=== PATIENT | female | born 1940 | race Caucasian/White ===

== ENCOUNTER → 2019-05-24 14:41 | Outpatient (BNVA) | payer MEDICARE, SELFPAY | PROVIDERS: Visit Provider Nurse Practitioner Family | DX: J11.1 Influenza due to unidentified influenza virus with other respiratory manifestations (principal); J44.0 Chronic obstructive pulmonary disease with (acute) lower respiratory infection; J06.9 Acute upper respiratory infection, unspecified | CPT/HCPCS: 87804 ==

== ENCOUNTER → 2019-09-04 11:48 | Outpatient (BNVA) | payer MEDICARE, SELFPAY | PROVIDERS: Visit Provider Specialist | DX: M25.512 Pain in left shoulder (principal); S42.212A Unspecified displaced fracture of surgical neck of left humerus, initial encounter for closed fracture; X58.XXXA Exposure to other specified factors, initial encounter; M81.8 Other osteoporosis without current pathological fracture | CPT/HCPCS: 73030; 73080; 73110 ==

== ENCOUNTER 2019-09-04 14:55 | Outpatient (CLI) | payer MEDICARE, SELFPAY | END 2019-09-04 14:56 | disposition home or self-care (01) | LOC: SPT 14:56 | PROVIDERS: Visit Provider Specialist | DX: Z46.89 Encounter for fitting and adjustment of other specified devices (principal); S42.492D Other displaced fracture of lower end of left humerus, subsequent encounter for fracture with routine healing; S42.292D Other displaced fracture of upper end of left humerus, subsequent encounter for fracture with routine healing; X58.XXXD Exposure to other specified factors, subsequent encounter; M25.512 Pain in left shoulder; S42.212A Unspecified displaced fracture of surgical neck of left humerus, initial encounter for closed fracture; X58.XXXA Exposure to other specified factors, initial encounter; M81.8 Other osteoporosis without current pathological fracture | CPT/HCPCS: 73030; 73080; 73110; 97760; L3670 ==

== ENCOUNTER → 2019-09-18 13:23 | Outpatient (BNVA) | payer MEDICARE, SELFPAY | PROVIDERS: Visit Provider Specialist | DX: S42.295A Other nondisplaced fracture of upper end of left humerus, initial encounter for closed fracture (principal); S42.215A Unspecified nondisplaced fracture of surgical neck of left humerus, initial encounter for closed fracture; X58.XXXA Exposure to other specified factors, initial encounter | CPT/HCPCS: 73030 ==

== ENCOUNTER → 2019-10-04 13:06 | Outpatient (BNVA) | payer MEDICARE, SELFPAY | PROVIDERS: Visit Provider Specialist | DX: S42.295A Other nondisplaced fracture of upper end of left humerus, initial encounter for closed fracture (principal); S42.402A Unspecified fracture of lower end of left humerus, initial encounter for closed fracture; X58.XXXA Exposure to other specified factors, initial encounter | CPT/HCPCS: 73030 ==

== ENCOUNTER → 2019-11-09 13:17 | Outpatient (BNVA) | payer MEDICARE, SELFPAY | PROVIDERS: Visit Provider Specialist | DX: S42.202D Unspecified fracture of upper end of left humerus, subsequent encounter for fracture with routine healing (principal); X58.XXXD Exposure to other specified factors, subsequent encounter; M25.512 Pain in left shoulder | CPT/HCPCS: 73030 ==

== ENCOUNTER 2019-11-21 13:28 | Outpatient (RCR) | payer MEDICARE, SELFPAY | END 2019-12-04 23:59 | disposition home or self-care (01) | LOC: SOT 13:28 | PROVIDERS: Referring Provider Family Medicine; Visit Provider Family Medicine | DX: S42.402D Unspecified fracture of lower end of left humerus, subsequent encounter for fracture with routine healing (principal); S42.202D Unspecified fracture of upper end of left humerus, subsequent encounter for fracture with routine healing; T14.8XXD Other injury of unspecified body region, subsequent encounter | CPT/HCPCS: 97110; 97167 ==

== ENCOUNTER 2019-12-05 06:00 | Outpatient (RCR) | payer MEDICARE, SELFPAY | END 2020-01-03 23:59 | disposition home or self-care (01) | LOC: SOT 06:00 | PROVIDERS: PCP Nurse Practitioner Family; Referring Provider Family Medicine; Visit Provider Family Medicine | DX: S42.292D Other displaced fracture of upper end of left humerus, subsequent encounter for fracture with routine healing (principal) | CPT/HCPCS: 97110 ==

== ENCOUNTER → 2019-12-25 10:59 | Outpatient (BNVA) | payer MEDICARE, SELFPAY | PROVIDERS: PCP Nurse Practitioner Family; Visit Provider Internal Medicine | DX: Z11.59 Encounter for screening for other viral diseases (principal); J44.9 Chronic obstructive pulmonary disease, unspecified | CPT/HCPCS: 87635 ==

== ENCOUNTER 2019-12-28 09:59 | Outpatient (CLI) | payer MEDICARE, SELFPAY ==
--- NOTE | 2019-12-28 15:58 | PFTS_ITS ---
Date of Study:12/28/19 Date of Dictation: MECHANICS: Forced vital capacity (FVC) is normal. Forced expiratory volume in one second (FEV1) is reduced. FEV1/FVC is reduced. FLOW VOLUME LOOP: Reduced flow at all lung volumes with scooping. LUNG VOLUMES: Total lung capacity (TLC) is normal. Residual volume (RV) is normal. DIFFUSING CAPACITY FOR CARBON MONOXIDE: Moderately reduced. INTERPRETATION: The pulmonary function tests are consistent with moderate airflow obstruction. No postbronchodilator spirometry was performed. Lung volumes are normal. Gas exchange (DLCO) is moderately reduced. MTDD
== END 2019-12-28 10:00 | disposition home or self-care (01) ==
LOC: RT 10:03
PROVIDERS: PCP Nurse Practitioner Family; Visit Provider Internal Medicine Critical Care Medicine
DX: J44.9 Chronic obstructive pulmonary disease, unspecified (principal)
CPT/HCPCS: 94010; 94726; 94729; J7611

== ENCOUNTER 2020-01-04 06:00 | Outpatient (RCR) | payer MEDICARE, SELFPAY | END 2020-02-03 23:59 | disposition home or self-care (01) | LOC: SOT 06:00 | PROVIDERS: PCP Nurse Practitioner Family; Referring Provider Family Medicine; Visit Provider Family Medicine | DX: S42.292D Other displaced fracture of upper end of left humerus, subsequent encounter for fracture with routine healing (principal) | CPT/HCPCS: 97110 ==

== ENCOUNTER 2020-01-08 14:10 | Outpatient (RCR) | payer MEDICARE, SELFPAY | END 2020-02-03 23:59 | disposition home or self-care (01) | LOC: SPT 14:10 | PROVIDERS: PCP Nurse Practitioner Family; Referring Provider Specialist; Visit Provider Specialist | DX: S42.209D Unspecified fracture of upper end of unspecified humerus, subsequent encounter for fracture with routine healing (principal); X58.XXXD Exposure to other specified factors, subsequent encounter | CPT/HCPCS: 97110; 97162 ==

== ENCOUNTER 2020-02-04 06:00 | Outpatient (RCR) | payer MEDICARE, SELFPAY | END 2020-03-04 23:59 | disposition home or self-care (01) | LOC: SOT 06:00 | PROVIDERS: PCP Nurse Practitioner Family; Referring Provider Family Medicine; Visit Provider Family Medicine | DX: S42.392D Other fracture of shaft of left humerus, subsequent encounter for fracture with routine healing (principal) | CPT/HCPCS: 97110 ==

== ENCOUNTER 2020-02-04 06:00 | Outpatient (RCR) | payer MEDICARE, SELFPAY | END 2020-03-04 23:59 | disposition home or self-care (01) | LOC: SPT 06:00 | PROVIDERS: PCP Nurse Practitioner Family; Referring Provider Specialist; Visit Provider Specialist | DX: S42.202D Unspecified fracture of upper end of left humerus, subsequent encounter for fracture with routine healing (principal); X58.XXXD Exposure to other specified factors, subsequent encounter | CPT/HCPCS: 97110 ==

== ENCOUNTER 2020-03-05 06:00 | Outpatient (RCR) | payer MEDICARE, SELFPAY | END 2020-04-04 23:59 | disposition home or self-care (01) | LOC: SPT 06:00 | PROVIDERS: PCP Nurse Practitioner Family; Referring Provider Specialist; Visit Provider Specialist | DX: S42.209D Unspecified fracture of upper end of unspecified humerus, subsequent encounter for fracture with routine healing (principal); X58.XXXD Exposure to other specified factors, subsequent encounter | CPT/HCPCS: 97110 ==

== ENCOUNTER 2020-03-05 06:00 | Outpatient (RCR) | payer MEDICARE, SELFPAY | END 2020-04-04 23:59 | disposition home or self-care (01) | LOC: SOT 06:00 | PROVIDERS: PCP Nurse Practitioner Family; Referring Provider Family Medicine; Visit Provider Family Medicine | DX: S42.292D Other displaced fracture of upper end of left humerus, subsequent encounter for fracture with routine healing (principal) | CPT/HCPCS: 97110 ==

== ENCOUNTER 2020-04-05 06:00 | Outpatient (RCR) | payer MEDICARE, SELFPAY | END 2020-05-05 23:59 | disposition home or self-care (01) | LOC: SOT 06:00 | PROVIDERS: PCP Nurse Practitioner Family; Referring Provider Family Medicine; Visit Provider Family Medicine | DX: S42.292D Other displaced fracture of upper end of left humerus, subsequent encounter for fracture with routine healing (principal) | CPT/HCPCS: 97110 ==

== ENCOUNTER 2020-04-05 06:00 | Outpatient (RCR) | payer MEDICARE, SELFPAY | END 2020-05-05 23:59 | disposition home or self-care (01) | LOC: SPT 06:00 | PROVIDERS: PCP Nurse Practitioner Family; Referring Provider Specialist; Visit Provider Specialist | DX: S42.202D Unspecified fracture of upper end of left humerus, subsequent encounter for fracture with routine healing (principal); X58.XXXD Exposure to other specified factors, subsequent encounter | CPT/HCPCS: 97110 ==

== ENCOUNTER 2020-05-06 06:00 | Outpatient (RCR) | payer MEDICARE, SELFPAY | END 2020-06-02 23:59 | disposition home or self-care (01) | LOC: SPT 06:00 | PROVIDERS: PCP Family Medicine; Referring Provider Specialist; Visit Provider Specialist | DX: S42.209D Unspecified fracture of upper end of unspecified humerus, subsequent encounter for fracture with routine healing (principal); X58.XXXD Exposure to other specified factors, subsequent encounter | CPT/HCPCS: 97110 ==

== ENCOUNTER 2020-05-06 06:00 | Outpatient (RCR) | payer MEDICARE, SELFPAY | END 2020-06-02 23:59 | disposition home or self-care (01) | LOC: SOT 06:00 | PROVIDERS: PCP Family Medicine; Referring Provider Family Medicine; Visit Provider Family Medicine | DX: S42.292D Other displaced fracture of upper end of left humerus, subsequent encounter for fracture with routine healing (principal) | CPT/HCPCS: 97110 ==

== ENCOUNTER 2020-05-27 13:07 | Outpatient (CLI) | payer MEDICARE, SELFPAY ==
--- NOTE | 2020-05-27 13:33 | CT_ITS ---
WS: [id number] CT PARANASAL SINUSES HISTORY: Persistent RHINOSINUSITIS TECHNIQUE: Contiguous 2.5 mm axial images obtained through the sinuses. Images are reconstructed in s agittal and coronal planes. All CT scans at [facility] use at least one of these dose opt imization techniques: automated exposure control; mA and/or kV adjustment per patient size (includes targeted exams where dose is matched to clinical indication); or iterative reconstruction. DLP: 346.37 mGycm COMPARISON: None available. Frontal sinuses: Normal. Sphenoid sinus: Normal. Ethmoid sinuses: Normal. Maxillary sinus: Moderate-sized mucous retention cyst in the floor of the RIGHT maxillary sinus. Diam eter of 1.6 cm. No air-fluid levels. Ostiomeatal unit: Patent ostiomeatal units. There is very slight deviation of the nasal septum to the RIGHT. No significant spurring. Orbits and globes are negative. No asymmetry involving the nasopharynx. CT/CT sinus wo con* [id number] IMPRESSION: 1. Moderate-sized mucous retention cyst in the floor the RIGHT maxillary sinus . 2. No sinusitis. 3. No significant asymmetry or increased soft tissue along the nasopharynx.
== END 2020-05-27 13:08 | disposition home or self-care (01) ==
LOC: RADWPI 13:09
PROVIDERS: PCP Family Medicine; Visit Provider Internal Medicine Critical Care Medicine
DX: J31.0 Chronic rhinitis (principal); J32.9 Chronic sinusitis, unspecified; M27.40 Unspecified cyst of jaw
CPT/HCPCS: 70486

== ENCOUNTER 2020-06-03 06:00 | Outpatient (RCR) | payer MEDICARE, SELFPAY | END 2020-07-03 23:59 | disposition home or self-care (01) | LOC: SOT 06:00 | PROVIDERS: PCP Family Medicine; Referring Provider Family Medicine; Visit Provider Family Medicine | DX: S42.209D Unspecified fracture of upper end of unspecified humerus, subsequent encounter for fracture with routine healing (principal); X58.XXXD Exposure to other specified factors, subsequent encounter | CPT/HCPCS: 97110; 97530 ==

== ENCOUNTER → 2020-08-26 14:48 | Outpatient (BNVA) | payer MEDICARE, SELFPAY | PROVIDERS: PCP Nurse Practitioner Family; Visit Provider Internal Medicine Critical Care Medicine | DX: J41.1 Mucopurulent chronic bronchitis (principal); J31.0 Chronic rhinitis; J32.9 Chronic sinusitis, unspecified; J96.11 Chronic respiratory failure with hypoxia | CPT/HCPCS: 80053; 85025 ==

== ENCOUNTER 2020-09-25 09:23 | Outpatient (CLI) | payer MEDICARE, SELFPAY ==
--- NOTE | 2020-09-25 09:32 | ECG_ITS ---
[facility] Test Date: 2020-09-25 Pat Name: Antonietta Vickers Department: Room: Gender: Female Choir Teacher: : 1940 Requested By: [employer] Minister[employer] Order Number: [id number] Una MD: TRACY LEE Interpretive Statements NAME OF STUDY: LEXISCAN SESTAMIBI STRESS TEST INDICATION: Chest Pain, NOTE: Please note that this is the electrocardiogram portion of the Lexiscan/Sestamibi stress test. The perfusion scan will be documented separately. DATA: Baseline heart rate was 73 beats per minute. Baseline blood pressure was 130/81 millimeters of mercury. Target heart rate was 139. Maximum heart rate achieved was 105. which was 75 % of the predicted target heart rate. Maximum blood pressure was 149/83 millimeters of mercury. The reason for ending the test was completion of the protocol. The patient did not experience any symptoms. ELECTROCARDIOGRAM: BASELINE: Sinus rhythm. Normal axis. Otherwise, no ST-T changes suggestive of ischemia noted. No arrhythmia noted. EXERCISE: After Lexiscan injection, no ST-T changes suggestive of ischemic noted. No arrhythmia noted. 1. EKG not suggestive of ischemia 2. Lexiscan injection unremarkable. 3. Perfusion scan will be documented separately. Electronically Signed On 09-25-2020 18:40:35 CDT by TRACY LEE [id number]
--- NOTE | 2020-09-25 09:33 | NMCV_ITS ---
NM stanislaw perf SPECT r/s* [id number] Antonietta Vickers Age: 80 Gender: F : 1940 Exam Date: 09/25/2020 11:20 Ordering Phys: Steffanie Mandel MD Technologist: MARQUES Ch Exam Location: [facility] Indications: MUCOPURULENT CHRONIC BRONCHITIS STRESS TEST [facility] IMAGE PROTOCOL Rest/Stress 1 Lexiscan Day Radiopharmaceutical Dose (mCi) Administration Site Administered by Rest: Tc-99m 10.6 IV MARQUES Siegel Sestamicharisma Stress:Tc-99m 33.0 IV MARQUES Siegel Sestamibi Rest: 25-Sep-2020 60 Discovery 630 Stress: 25-Sep-2020 30 Discovery 630 0.4mg Lexiscan. Supine position only as patient was unable to lay prone. SPECT RESULTS Technical Quality: Good Raw Data Analysis: Normal Image Corrections: No attenuation or motion correction applied Summed Stress Score: 0 Summed Rest Score: 2 Summed Difference Score: 0 PERFUSION FINDINGS SPECT images demonstrate homogeneous tracer distribution throughout the myocardium. FUNCTIONAL RESULTS (calculated via Gated SPECT) Stress Image LV EF (%): 83 Stress EDV (mL):52 TID: 1 Stress ESV (mL):9 Rest Image LV EF (%): 83 FUNCTIONAL FINDINGS: There is normal left ventricular systolic function. IMPRESSIONS Myocardial perfusion imaging is normal. EKG segment will be documented separately. Mary Powell MD (Electronically Signed) Final Date: 25 September 2020 18:31 S
[2020-09-25] MEDS: regadenoson 0.4 Mg/5 ml Syringe IVP (12:20)
[2020-09-25 12:43] VITALS: BP 124/78; PULSE 95
== END 2020-09-25 09:24 | disposition home or self-care (01) ==
LOC: CDL 09:27
PROVIDERS: PCP Electrodiagnostic Medicine; Visit Provider Internal Medicine Critical Care Medicine
DX: R06.02 Shortness of breath (principal); R07.9 Chest pain, unspecified
CPT/HCPCS: 78452; 93017; 96374; A9500; J2785

== ENCOUNTER → 2021-06-23 10:46 | Outpatient (BNVA) | payer MEDICARE, SELFPAY | PROVIDERS: PCP Electrodiagnostic Medicine; Visit Provider Internal Medicine Critical Care Medicine | DX: J41.1 Mucopurulent chronic bronchitis (principal); J31.0 Chronic rhinitis; J32.9 Chronic sinusitis, unspecified; J96.11 Chronic respiratory failure with hypoxia; Z87.891 Personal history of nicotine dependence | CPT/HCPCS: 99214 ==

== ENCOUNTER → 2021-12-25 10:58 | Outpatient (BNVA) | payer MEDICARE, SELFPAY | PROVIDERS: PCP Electrodiagnostic Medicine; Visit Provider Internal Medicine Critical Care Medicine | DX: J41.1 Mucopurulent chronic bronchitis (principal); J31.0 Chronic rhinitis; J32.9 Chronic sinusitis, unspecified; J96.11 Chronic respiratory failure with hypoxia; Z99.81 Dependence on supplemental oxygen | CPT/HCPCS: 99214 ==

== ENCOUNTER → 2022-08-03 10:29 | Outpatient (BNVA) | payer MEDICARE, SELFPAY | PROVIDERS: PCP Electrodiagnostic Medicine; Visit Provider Internal Medicine Pulmonary Disease | DX: J41.1 Mucopurulent chronic bronchitis (principal); J31.0 Chronic rhinitis; J32.9 Chronic sinusitis, unspecified; J96.11 Chronic respiratory failure with hypoxia; Z87.891 Personal history of nicotine dependence; R60.0 Localized edema; Z99.81 Dependence on supplemental oxygen | CPT/HCPCS: 99214 ==

== ENCOUNTER 2022-08-18 11:37 | Outpatient (CLI) | payer MEDICARE, SELFPAY ==
--- NOTE | 2022-08-18 11:49 | XRR_ITS ---
PROCEDURE INFORMATION: Exam: XR Chest Exam date and time: 08/18/2022 11:55 AM Age: 82 years old Clinical indication: Shortness of breath; Additional info: SOB TECHNIQUE: Imaging protocol: Radiologic exam of the chest. Views: 2 views. COMPARISON: CR XR shoulder LT min 2V* [id number] 11/09/2019 1:26 PM FINDINGS: Lungs: There is no consolidation. Lung volumes are large. There is relative hyperlucency of the upper lungs. Pleural spaces: There is no pleural effusion or pneumothorax. Heart/Mediastinum: Cardiomediastinal contours are unremarkable. Bones/joints: There is a healed fracture of the left proximal humerus. No acute fracture. XR/XR chest 2V* [id number] IMPRESSION: 1. No acute findings. 2. Emphysema.
== END 2022-08-18 11:38 | disposition home or self-care (01) ==
PROVIDERS: PCP Electrodiagnostic Medicine; Visit Provider Internal Medicine Pulmonary Disease
DX: J43.9 Emphysema, unspecified (principal)
CPT/HCPCS: 71046

== ENCOUNTER 2022-09-27 13:43 | Emergency (ER) | payer MEDICARE, SELFPAY ==
[2022-09-27 13:53] VITALS: BP 123/62; PULSE 97; RESP 17; TEMP 37; O2SAT 93; BMI 27.8
--- NOTE | 2022-09-27 14:25 | ED_ITS ---
HPI - Female Genitourinary General: Chief complaint: Urogenital-Female Stated complaint: blood in urine, constipation, lightheaded Time Seen by Provider: 09/27/22 14:24 History of Present Illness: Ms. Longo is a an 82-year-old lady presenting to the emergency department due to blood in urine. Apparently she had fever and mild urinary symptoms 5 days ago and was seen by primary care. She was diagnosed with urinary tract infection and started on antibiotic. She does not recall specifically which one but it sounds like probably Bactrim. Despite this she has had hematuria for the past 3 days with any urination. Denies blood in stool or other sources of bleeding. Does have some lower abdominal pressure however largely this is resolved. She is not on anticoagulation. No other specific changes in health, exacerbating, or alleviating factors identified. Onset (ago): day(s) Location of symptoms: suprapubic Urinary symptoms: Hematuria Review of Systems General: Reports: 10 or more systems reviewed and unremarkable except in HPI and below PFSH ED PFSH: Medical History COPD (chronic obstructive pulmonary disease) Family History Father CAD (coronary artery disease) Social History Smoking and tobacco status: former smoker Quit status (tobacco): has quit using tobacco Year quit tobacco: 2019 - PPD x 60 Years Second hand smoke exposure: Yes Smoking risk assessment/counseling performed?: No Alcohol intake: current Alcohol intake frequency: few times a month Alcohol typ e: wine Substance/Drug Use: never Lives independently: Yes Household members: spouse Marital status: Life Partner Current occupational status: retired Do you think of yourself as: Straight/Heterosexual Current gender identity: Female Physical Exam Const: COMMON NORMALS: alert GENERAL APPEARANCE: cooperative and well devel oped HENMT: COMMON NORMALS: normocephalic and atraumatic HEAD & SCALP: normocephalic and atraumatic Eye: COMMON NORMALS: conjunctivae normal CONJUNCTIVA: Yes conjunctivae normal SCLERA: sclerae normal Neck/C-Spine: COMMON NORMALS: supple GENERAL: Yes trachea midline Resp: COMMON NORMALS: clear to auscultation bilaterally EFFORT & INSPECTION: Yes able to speak in complete sentences AUSCULTATION: clear to auscultation bilaterally Cardio: COMMON NORMALS: regular rate and regular rhythm RATE: regular rate RHYTHM: regular rhythm GI: COMMON NORMALS: Soft to palpation PALPATION: Yes Soft to palpation and No Tenderness to palpation present (GI) : COMMON NORMALS: Yes no CVA tenderness BLADDER/KIDNEY EXAM: Yes no CVA tenderness Back/Pelvis: COMMON NORMALS: no CVA tenderness Extremity: GENERAL: Yes normal exam except as noted and No edema Neuro: COMMON NORMALS: moves all extremities SENSORIUM/ORIENTATION: Yes alert and No Orientation impaired Psych: COMMON NORMALS: mental status grossly normal and Normal thought process present THOUGHT PROCESS: Normal thought process present Course Vital Signs: Vital signs: Vital Signs Temperature 98.6 F 09/27/22 13:53 Pulse Rate 78 09/27/22 20:32 Respiratory Rate 16 09/27/22 17:44 Blood Pressure 122/53 09/27/22 20:32 Pulse Oximetry 92 09/27/22 20:32 Oxygen Delivery Me thod Room Air 09/27/22 13:53 MDM - Female Medical Decision Making 82-year-old lady presenting with abdominal symptoms and hematuria. Exam as above. No acute surgical abdomen. Nontoxic appearance. Labs with minimal leukocytosis, normal hemoglobin. Metabolic panel with mild dehydration. Renal function is preserved. Urine is bloody in appearance. CT abdomen and pelvis with likely bladder hemorrhage. Incidental findings noted. Patient underwent bladder irrigation with significant improvement in hematuria. This does require further follow-up however most likely given recent diagnosis of UTI is secondary to bladder wall irritation with clot formation and impaired hemostasis secondary to clot presence and bladder expansion/contraction. Patient given fluids and analgesia. The results of ED evaluation were discussed with the patient including prescriptions and/or symptomatic cares (if applicable) including appropriate and responsible use, followup plan, and return precautions. The patient verbalized understanding and felt safe for discharge. Medical Records I reviewed the patient's medical records. Lab Data I reviewed the patient's lab results. 09/27/22 14:53 09/27/22 14:53 Radiology Impressions Abdomen/Pelvis CT 09/27/22 15:41 IMPRESSION: 1. Heterogeneous density in the bladder along the posterior left bladder wall likely represent hemorrhage given this patient's history. Underlying neoplasm can not be excluded. 2. Chronic appearing vzci-rl-vhplshos compression fractures of the L2 and L5 superior endplates. Generalized osteopenia. COMMENTS: 1. Consistent with the [employer]'s Incidental Findings Committee white paper (J Am Ean Radiol 2017): For any incidental adrenal lesion greater than or equal to 1 cm but less than or equal to 4 cm classified in this report as benign, likely benign, or containing fat (including classification as an adenoma or myelolipoma), no follow-up imaging is recommended per consensus recommendations based on imaging criteria. Further lab evaluation could be pursued if warranted based on clinical findings. 2. Consistent with the [employer]'s Incidental Findings Committee white paper (J Am Ean Radiol 2018): Any incidental renal lesion less than 1 cm or classified as too small to characterize, or any incidental cystic renal lesion characterized as simple-appearing, is likely benign. No follow-up imaging is recommended for these lesions per consensus recommendations based on imaging criteria. Laboratory Results WBC 10.8 10^3/uL (4.0-10.0) H 09/27/22 14:53 RBC 4.08 10^6/uL (4.1-5.3) L 09/27/22 14:53 Hgb 11.6 g/dL (11.5-15.3) 09/27/22 14:53 Hct 36.8 % (37.0-47.0) L 09/27/22 14:53 MCV 90.2 fl (81-99) 09/27/22 14:53 MCH 28.4 pg (28.0-34.0) 09/27/22 14:53 MCHC 31.5 g/dL (30.0-36.0) 09/27/22 14:53 RDW 14.5 % (12.1-15.1) 09/27/22 14:53 Plt Count 400 10^3/cmm (130-400) 09/27/22 14:53 MPV 9.4 fL (7.4-10.4) 09/27/22 14:53 Neut % (Auto) 67.9 % 09/27/22 14:53 Lymph % (Auto) 21.3 % 09/27/22 14:53 [place] % (Auto) 8.0 % 09/27/22 14:53 Eos % (Auto) 1.6 % 09/27/22 14:53 Baso % (Auto) 0.6 % 09/27/22 14:53 Neut # (Auto) 7.35 10^3/uL (1.8-7.7) 09/27/22 14:53 Lymph # (Auto) 2.3 10^3/uL (0.8-4.8) 09/27/22 14:53 [place] # (Auto) 0.9 10^3/uL (0.2-0.9) 09/27/22 14:53 Eos # (Auto) 0.2 10^3/uL (0.0-0.8) 09/27/22 14:53 Baso # (Auto) 0.1 10^3/uL (0.0-0.1) 09/27/22 14:53 Nucleated RBC % (auto) 0 % 09/27/22 14:53 Nucleated RBCs # 0.0 /100WBC 09/27/22 14:53 Sodium 134 mmol/L (136-145) L 09/27/22 14:53 Potassium 4.3 mmol/L (3.5-5.1) 09/27/22 14:53 Chloride 100 mmol/L (98-107) 09/27/22 14:53 Carbon Dioxide 21 mmol/L (22-29) L 09/27/22 14:53 Anion Gap 17.3 (5-19) 09/27/22 14:53 BUN 15 mg/dL (8-23) 09/27/22 14:53 Creatinine 0.9 mg/dL (0.5-0.9) 09/27/22 14:53 GFR Calculation Not Reportable 09/27/22 14:53 Glucose 93 mg/dL (65-115) 09/27/22 14:53 Calculated Osmolality 279 mOsm/kg (285-295) L 09/27/22 14:53 Calcium 9.2 mg/dL (8.5-10.5) 09/27/22 14:53 Urine Color Red (Yellow) 09/27/22 14:45 Urine Appearance Bloody (CLEAR) A 09/27/22 14:45 Urine pH 6.5 (5-7) 09/27/22 14:45 Ur Specific [place] 1.015 (1.005-1.030) 09/27/22 14:45 Urine Protein TNP 09/27/22 14:45 Urine Glucose (UA) TNP 09/27/22 14:45 Urine Ketones TNP 09/27/22 14:45 Urine Blood TNP 09/27/22 14:45 Urine Nitrate TNP 09/27/22 14:45 Urine Bilirubin TNP 09/27/22 14:45 Urine Urobilinogen TNP 09/27/22 14:45 Ur Leukocyte Esterase TNP 09/27/22 14:45 Urine RBC Too numerous to cnt /hpf (0-2) H 09/27/22 14:45 Urine WBC 5-10 /hpf (0-5) H 09/27/22 14:45 Ur Squamous Epith Cells 0-4 /hpf (0-5) H 09/27/22 14:45 Amorphous Sediment Not Reportable 09/27/22 14:45 Urine Bacteria 1+ /hpf (NONE) H 09/27/22 14:45 Discharge Plan Discharge Patient Disposition: Home Clinical Impression: Hematuria, Constipation Condition: Stable Prescriptions: New Levsin 0.125 mg tablet 0.125 mg PO BID PRN (Reason: bladder spasms) Qty: 10 0RF Miralax 17 gram/dose powder 17 g PO TID PRN (Reason: constipation) Qty: 238 0RF No Action furosemide [Lasix] 20 mg tablet 20 mg PO DAILY PRN (Reason: edema) 30 Days Qty: 30 2RF azelastine 137 mcg (0.1 %) aerosol,spray 2 spray intranasal BID Rx Instructions: administer into each nostril sulfamethoxazole-trimethoprim 800-160 mg tablet 1 tab PO Q12H Rx Instructions: @09:00,21:00 for 10 days (rx filled 09/22/22) omeprazole 40 mg capsule,delayed release(DR/EC) 40 mg PO QAM Aleve 220 mg Tablet 220 mg PO Q12H PRN (Reason: Pain) fluoxetine 10 mg capsule 10 mg PO DAILY PRN (Reason: pt not started taking as of 09/27/22) Anoro Ellipta 62.5-25 mcg/actuation blister with device 1 inh inhalation Q24H Discharge Orders: Discharge ED (Routine); Ordered 09/27/22 Ordered By: Wolfgang Rubio Referrals: Lloyd Pillai DO [Primary Care Provider] - Discharge Diet: Usual diet Discharge Activity: Increase activity as tolerated Patient Instructions: Constipation (ED), Hematuria (ED) Activity Restrictions/Additional Instructions: Thank you for visiting the emergency department. You were seen and evaluated for blood in urine. The exact cause of your symptoms is unclear however may be related to clot that formed in the bladder secondary to urinary tract infection. We are pleased that you had some improvement in bleeding with bladder irrigation. As discussed you do require follow-up for further evaluation to ensure resolution of blood in urine. Other considerations that would cause bleeding and would require further evaluation or bladder masses. Please follow-up with your primary care provider within the next few days. Return for recurrent blood in urine, lightheadedness, dizziness, chest pain, shortness of breath, inability to urinate, uncontrolled abdominal pain, or anything else that you are concerned about and feel needs emergency department evaluation. Coding Level of Care Code ED [employer] for Edna Carpenter
[2022-09-27 15:08] LABS: Basophils # 0.1 10^3/uL (0.0-0.1); Basophils % 0.6 %; Eosinophils # 0.2 10^3/uL (0.0-0.8); Eosinophils % 1.6 %; Hematocrit 36.8 % (37.0-47.0); Hemoglobin 11.6 g/dL (11.5-15.3); Lymphocytes # 2.3 10^3/uL (0.8-4.8); Lymphocytes % 21.3 %; Mean Corpuscular HGB Conc 31.5 g/dL (30.0-36.0); Mean Corpuscular Hemoglobin 28.4 pg (28.0-34.0); Mean Corpuscular Volume 90.2 fl (81-99); Mean Platelet Volume 9.4 fL (7.4-10.4); Monocytes # 0.9 10^3/uL (0.2-0.9); Neutrophils # 7.35 10^3/uL (1.8-7.7); Neutrophils % 67.9 %; Nucleated Red Blood Cells % 0 %; Platelet Count 400 10^3/cmm (130-400); Red Blood Count 4.08 10^6/uL (4.1-5.3); Red Cell Distribution Width 14.5 % (12.1-15.1); White Blood Count 10.8 10^3/uL (4.0-10.0)
[2022-09-27 15:25] LABS: Anion Gap 17.3 (5-19); Blood Urea Nitrogen 15 mg/dL (8-23); Calcium 9.2 mg/dL (8.5-10.5); Carbon Dioxide 21 mmol/L (22-29); Chloride 100 mmol/L (98-107); Glucose 93 mg/dL (65-115); Osmolality Calculated 279 mOsm/kg (285-295); Potassium 4.3 mmol/L (3.5-5.1); Sodium 134 mmol/L (136-145)
--- NOTE | 2022-09-27 15:30 | PC.PHAR ---
pt states she takes care of her own medications-pt states she hasnt started taking prozac 10mg daily as of 09/27/22-pt states the dr hernandezd her lipitor 20mg about 3 weeks go ext shows last filled 04/28/22 90d/s-
[2022-09-27 15:36] LABS: Specific Gravity, Urine 1.015 (1.005-1.030); Urine Appearance Bloody (CLEAR); Urine Color Red (Yellow); pH Urine 6.5 (5-7)
[2022-09-27 15:37] LABS: Add Urine Microscopic? YES
[2022-09-27 15:38] LABS: Add Urine Culture? Yes; Bacteria Urine 1+ /hpf; RBC Urine TOO NUMEROUS TO CNT /hpf (0-2); Squamous Epithelial Cell Urine 0-4 /hpf (0-5)
--- NOTE | 2022-09-27 15:41 | CTR_ITS ---
PROCEDURE INFORMATION: Exam: CT Abdomen And Pelvis Without Contrast Exam date and time: 09/27/2022 4:08 PM Age: 82 years old Clinical indication: Other: Gross hematuria TECHNIQUE: Imaging protocol: Computed tomography of the abdomen and pelvis without contrast. Radiation optimization: All CT scans at this facility use at least one of these dose optimization techniques: automated exposure control; mA and/or kV adjustment per patient size (includes targeted exams where dose is matched to clinical indication); or iterative reconstruction. REPORTING DATA: Count of CT and Cardiac NM exams in prior 12 months: This patient has received 0 known CTs and 0 known cardiac nuclear medicine studies in the 12 months prior to the current study. COMPARISON: CR XR chest 2V* [id number] 08/18/2022 11:55 AM RADIATION DOSE METRICS: Total DLP (mGy-cm): 766.77 FINDINGS: Liver: Normal. No mass. Gallbladder and bile ducts: Normal. No calcified stones. No ductal dilation. Pancreas: Normal. No ductal dilation. Spleen: Normal. No splenomegaly. Adrenal glands: There is an 11 mm focal hypodense mass in the left adrenal gland, consistent in appearance and density with a benign adrenal adenoma. Kidneys and ureters: 15 mm cyst with benign features off the lateral aspect of the right kidney. Follow-up is not necessary. Stomach and bowel: Normal variant interposition of the colon anterior to the liver. This can be associated with abdominal pain. Appendix: A normal appendix is identified. Intraperitoneal space: See Stomach and bowel finding. Vasculature: Unremarkable. No abdominal aortic aneurysm. Lymph nodes: Unremarkable. No enlarged lymph nodes. Urinary bladder: There is heterogeneous density within the bladder lumen most prominently along the posterior left bladder wall measuring 5.1 x 4.8 cm in AP/transverse dimensions. Reproductive: There are calcified fibroids in the uterus. Bones/joints: There are chronic appearing [id number]-oj-gsribczo compression fractures of the L2 and L5 superior endplates. These are associated with degenerative Schmorl's nodes. Degenerative changes are present in the visualized spine. Generalized osteopenia. Soft tissues: Unremarkable. CT/CT kidney stone [id number] IMPRESSION: 1. Heterogeneous density in the bladder along the posterior left bladder wall likely represent hemorrhage given this patient's history. Underlying neoplasm can not be excluded. 2. Chronic appearing pthl-kb-aurwripo compression fractures of the L2 and L5 superior endplates. Generalized osteopenia. COMMENTS: 1. Consistent with the [employer]'s Incidental Findings Committee white paper (J Am Ean Radiol 2017): For any incidental adrenal lesion greater than or equal to 1 cm but less than or equal to 4 cm classified in this report as benign, likely benign, or containing fat (including classification as an adenoma or myelolipoma), no follow-up imaging is recommended per consensus recommendations based on imaging criteria. Further lab evaluation could be pursued if warranted based on clinical findings. 2. Consistent with the [employer]'s Incidental Findings Committee white paper (J Am Ean Radiol 2018): Any incidental renal lesion less than 1 cm or classified as too small to characterize, or any incidental cystic renal lesion characterized as simple-appearing, is likely benign. No follow-up imaging is recommended for these lesions per consensus recommendations based on imaging criteria.
[2022-09-27 17:44] VITALS: RESP 16; O2SAT 94
[2022-09-27] MEDS: morphine 4 mg/mL SDV 1 mL IVP (17:44)
[2022-09-27] MEDS: sodium chloride 0.9% 1,000 ML 999 ML IV (17:44)
[2022-09-27] MEDS: lidocaine 2% Urojet 20 mL TOPICAL (17:46)
--- NOTE | 2022-09-27 18:54 | PC.NURSE ---
PLACED BY MCKAYLA KEVIN.
--- NOTE | 2022-09-27 18:54 | PC.NURSE ---
2900 ML OF DRAINAGE REMOVED FROM URINE DRAINAGE BAG.
--- NOTE | 2022-09-27 20:30 | PC.NURSE ---
Ayala removed per MD orders.
[2022-09-27 20:32] VITALS: BP 122/53; PULSE 78; O2SAT 92
== END 2022-09-27 20:36 | disposition home or self-care (01) ==
PROVIDERS: Emergency Provider Emergency Medicine; PCP Electrodiagnostic Medicine
DX: R31.9 Hematuria, unspecified (principal); K59.00 Constipation, unspecified; J44.9 Chronic obstructive pulmonary disease, unspecified; Z87.891 Personal history of nicotine dependence
CPT/HCPCS: 36415; 51702; 74176; 80048; 81001; 85025; 87086; 96361; 96374; 99285; J2270; J7030

== ENCOUNTER 2022-10-01 11:40 | Emergency (ER) | payer MEDICARE, SELFPAY ==
[2022-10-01 11:45] VITALS: BP 120/60; PULSE 88; RESP 16; O2SAT 94; BMI 27.8
[2022-10-01 12:19] VITALS: BP 128/68; O2SAT 100
--- NOTE | 2022-10-01 13:27 | W.ED.FEMALGU ---
HPI - Female Genitourinary General: Chief complaint: Urogenital-Female Stated complaint: blood in urine/lightheaded Time Seen by Provider: 10/01/22 13:17 History of Present Illness: Patient presents today with complaints of blood in her urine and having a harder time to urinate than normal. Patient states she has been lightheaded off and on. Patient has been on antibiotics for 10 days for urinary tract infection. Patient was seen here within the last 3 to 4 days for the same thing and had bladder irrigation was sent home. Patient says she was better for 1 day and then it started coming back worsening until today. Patient's never had this before. Patient is never seen a urologist before patient is not on any type of blood thinners nothing makes this worse. Review of Systems General: Reports: 10 or more systems reviewed and unremarkable except in HPI and below PFSH ED PFSH: Medical History COPD (chronic obstructive pulmonary disease) Family History Father CAD (coronary artery disease) Social History Smoking and tobacco status: former smoker Quit status (tobacco): has quit using tobacco Year quit tobacco: 2019 - PPD x 60 Years Second hand smoke exposure: Yes Smoking risk assessment/counseling performed?: No Alcohol intake: current Alcohol intake frequency: few times a month Alcohol type: wine Substance/Drug Use: never Lives independently: Yes Household members: spouse Marital status: Life Partner Current occupational status: retired Do you think of yourself as: Straight/Heterosexual Current gender identity: Female Physical Exam Const: COMMON NORMALS: no acute distress, average body habitus, patient oriented x3, no limitations, healthy appearing, alert and well nourished HENMT: COMMON NORMALS: normocephalic, atraumatic, hearing grossly normal bilaterally, external ears normal, Normal external nose present and moist oral mucous membranes HEAD & SCALP: normocephalic and atraumatic NOSE: Normal external nose present EXTERNAL EAR: Yes external ears normal Neck/C-Spine: COMMON NORMALS: no JVD Chest: COMMONS NORMALS: normal inspection of the chest and normal palpation of entire chest wall Resp: COMMON NORMALS: normal respiratory effort, No retractions, No use of accessory muscles and clear to auscultation bilaterally AUSCULTATION: clear to auscultation bilaterally Cardio: COMMON NORMALS: no JVD, regular rate, regular rhythm, S1 normal heart sound present, S2 normal heart sound present, No gallops present (Cardio), No clicks present (Cardio), No murmurs present (Cardio) and No rub (Cardio) RATE: regular rate RHYTHM: regular rhythm HEART SOUNDS: S1 normal heart sound present and S2 normal heart sound present GI: COMMON NORMALS: Normal to inspection, nondistended, normoactive bowel sounds present, Soft to palpation, non-tender, No hepatosplenomegaly present and no masses PALPATION: Yes Soft to palpation and Yes No hepatosplenomegaly present : COMMON NORMALS: Yes no CVA tenderness BLADDER/KIDNEY EXAM: Yes no CVA tenderness Back/Pelvis: COMMON NORMALS: no CVA tenderness Neuro: COMMON NORMALS: patient oriented x3 SENSORIUM/ORIENTATION: Yes alert Course Vital Signs: Vital signs: Vital Signs Pulse Rate 88 10/01/22 11:45 Respiratory Rate 18 10/01/22 15:44 Blood Pressure 120/60 10/01/22 11:45 Pulse Oximetry 100 10/01/22 15:44 Oxygen Delivery Me thod Nasal Cannula 10/01/22 11:45 Oxygen Flow Rate 2 10/01/22 11:45 MDM - Female Medical Decision Making Patient presents to the ER with complaints of hematuria. Patient was seen here couple days ago and had bladder irrigation and is much improved for a day and then it started coming back. Patient just finished up her 10-day round course of antibiotics for UTI. Lab work was obtained which was essentially benign but did reveal patient's hemoglobin of 10.6 and hematocrit of 34.0 which is slightly lower than it was at her last visit. UA did not show signs of infection but did show blood in her urine. Patient will be referred to urology. Patient be discharged home to follow-up with her PCP in a week to call for the urologist appointment. Patient is to return to the ER if symptoms worsen. Differential Diagnosis Unlikely abdominal pain, acute appendicitis, calculus of kidney, constipation, diverticulitis, endometriosis, gastroenteritis, pancreatitis or small bowel obstruction Medical Records I reviewed the patient's medical records. Lab Data I reviewed the patient's lab results. 10/01/22 13:38 10/01/22 13:38 Laboratory Results WBC 7.2 10^3/uL (4.0-10.0) 10/01/22 13:38 RBC 3.66 10^6/uL (4.1-5.3) L 10/01/22 13:38 Hgb 10.6 g/dL (11.5-15.3) L 10/01/22 13:38 Hct 34.0 % (37.0-47.0) L 10/01/22 13:38 MCV 92.9 fl (81-99) 10/01/22 13:38 MCH 29.0 pg (28.0-34.0) 10/01/22 13:38 MCHC 31.2 g/dL (30.0-36.0) 10/01/22 13:38 RDW 15.4 % (12.1-15.1) H 10/01/22 13:38 Plt Count 290 10^3/cmm (130-400) 10/01/22 13:38 MPV 9.4 fL (7.4-10.4) 10/01/22 13:38 Neut % (Auto) 61.2 % 10/01/22 13:38 Lymph % (Auto) 27.2 % 10/01/22 13:38 [place] % (Auto) 8.6 % 10/01/22 13:38 Eos % (Auto) 1.9 % 10/01/22 13:38 Baso % (Auto) 0.7 % 10/01/22 13:38 Neut # (Auto) 4.42 10^3/uL (1.8-7.7) 10/01/22 13:38 Lymph # (Auto) 2.0 10^3/uL (0.8-4.8) 10/01/22 13:38 [place] # (Auto) 0.6 10^3/uL (0.2-0.9) 10/01/22 13:38 Eos # (Auto) 0.1 10^3/uL (0.0-0.8) 10/01/22 13:38 Baso # (Auto) 0.1 10^3/uL (0.0-0.1) 10/01/22 13:38 Nucleated RBC % (auto) 0 % 10/01/22 13:38 Nucleated RBCs # 0.0 /100WBC 10/01/22 13:38 PT 14.30 SECONDS (12.1-14.9) 10/01/22 13:38 INR 1.07 (0.8-1.2) 10/01/22 13:38 Sodium 139 mmol/L (136-145) 10/01/22 13:38 Potassium 4.4 mmol/L (3.5-5.1) 10/01/22 13:38 Chloride 104 mmol/L (98-107) 10/01/22 13:38 Carbon Dioxide 23 mmol/L (22-29) 10/01/22 13:38 Anion Gap 16.4 (5-19) 10/01/22 13:38 BUN 9 mg/dL (8-23) 10/01/22 13:38 Creatinine 0.7 mg/dL (0.5-0.9) 10/01/22 13:38 GFR Calculation Not Reportable 10/01/22 13:38 Glucose 90 mg/dL (65-115) 10/01/22 13:38 Calculated Osmolality 286 mOsm/kg (285-295) 10/01/22 13:38 Calcium 9.3 mg/dL (8.5-10.5) 10/01/22 13:38 Total Bilirubin 0.4 mg/dL (0.15-1.2) 10/01/22 13:38 AST 23 U/L (0-32) 10/01/22 13:38 ALT 13 U/L (0-33) 10/01/22 13:38 Alkaline Phosphatase 86 U/L (35-105) 10/01/22 13:38 Total Protein 7.0 g/dL (6.6-8.7) 10/01/22 13:38 Albumin 3.8 g/dL (3.5-5.2) 10/01/22 13:38 Globulin 3.2 g/dL (1.3-4.6) 10/01/22 13:38 Urine Color Red (Yellow) 10/01/22 13:58 Urine Appearance Cloudy (CLEAR) A 10/01/22 13:58 Urine pH 7 (5-7) 10/01/22 13:58 Ur Specific [place] 1.020 (1.005-1.030) 10/01/22 13:58 Urine Protein 3+ (Negative) H 10/01/22 13:58 Urine Glucose (UA) Norm (Normal) 10/01/22 13:58 Urine Ketones 1+ (Negative) H 10/01/22 13:58 Urine Blood 3+ (Negative) H 10/01/22 13:58 Urine Nitrate Negative (Negative) 10/01/22 13:58 Urine Bilirubin 1+ (Negative) H 10/01/22 13:58 Urine Urobilinogen 4 mg/dL (Negative) H 10/01/22 13:58 Ur Leukocyte Esterase Negative (Negative) 10/01/22 13:58 Urine RBC Too numerous to cnt /hpf (0-2) H 10/01/22 13:58 Urine WBC 5-10 /hpf (0-5) H 10/01/22 13:58 Ur Squamous Epith Cells 0-4 /hpf (0-5) H 10/01/22 13:58 Amorphous Sediment Not Reportable 10/01/22 13:58 Urine Bacteria 1+ /hpf (NONE) H 10/01/22 13:58 Urine Mucus 1+ /hpf 10/01/22 13:58 Discharge Plan Discharge Patient Disposition: Home Clinical Impression: Hematuria Qualifiers: Hematuria type: unspecified type Qualified Code(s): R31.9 - Hematuria, unspecified Condition: Stable Prescriptions: No Action furosemide [Lasix] 20 mg tablet 20 mg PO DAILY PRN (Reason: edema) 30 Days Qty: 30 2RF azelastine 137 mcg (0.1 %) aerosol,spray 2 spray intranasal BID Rx Instructions: administer into each nostril sulfamethoxazole-trimethoprim 800-160 mg tablet 1 tab PO Q12H Rx Instructions: @09:00,21:00 for 10 days (rx filled 09/22/22) omeprazole 40 mg capsule,delayed release(DR/EC) 40 mg PO QAM Aleve 220 mg Tablet 220 mg PO Q12H PRN (Reason: Pain) fluoxetine 10 mg capsule 10 mg PO DAILY PRN (Reason: pt not started taking as of 09/27/22) Anoro Ellipta 62.5-25 mcg/actuation blister with device 1 inh inhalation Q24H Levsin 0.125 mg tablet 0.125 mg PO BID PRN (Reason: bladder spasms) Qty: 10 0RF Miralax 17 gram/dose powder 17 g PO TID PRN (Reason: constipation) Qty: 238 0RF Discharge Orders: Discharge ED (Routine); Ordered 10/01/22 Ordered By: Michael Anand Referrals: Lloyd Pillai DO [Primary Care Provider] - 1 week Patient Instructions: Hematuria - Female Activity Restrictions/Additional Instructions: Your case has been referred to case management. Please await a call from case management about your referral to the urologist. If you have not heard from them within 2-3 business days please feel free to call back. Please follow-up with your PCP as needed. Please return to the ER if signs and symptoms worsen. Coding Level of Care Code ED Senior Clinical Project Manager for Edna Carpenter
[2022-10-01 13:30] VITALS: BP 110/72; PULSE 80; RESP 18; O2SAT 98
[2022-10-01 13:48] LABS: Basophils # 0.1 10^3/uL (0.0-0.1); Basophils % 0.7 %; Eosinophils # 0.1 10^3/uL (0.0-0.8); Eosinophils % 1.9 %; Hemoglobin 10.6 g/dL (11.5-15.3); Lymphocytes % 27.2 %; Mean Corpuscular HGB Conc 31.2 g/dL (30.0-36.0); Mean Corpuscular Volume 92.9 fl (81-99); Mean Platelet Volume 9.4 fL (7.4-10.4); Monocytes # 0.6 10^3/uL (0.2-0.9); Monocytes % 8.6 %; Neutrophils # 4.42 10^3/uL (1.8-7.7); Neutrophils % 61.2 %; Nucleated Red Blood Cells % 0 %; Platelet Count 290 10^3/cmm (130-400); Red Blood Count 3.66 10^6/uL (4.1-5.3); Red Cell Distribution Width 15.4 % (12.1-15.1); White Blood Count 7.2 10^3/uL (4.0-10.0)
[2022-10-01 13:56] LABS: INR 1.07 (0.8-1.2)
[2022-10-01 14:01] LABS: Alanine Aminotransferase 13 U/L (0-33); Albumin Level 3.8 g/dL (3.5-5.2); Alkaline Phosphatase 86 U/L (35-105); Anion Gap 16.4 (5-19); Aspartate Amino Transferase 23 U/L (0-32); Blood Urea Nitrogen 9 mg/dL (8-23); Calcium 9.3 mg/dL (8.5-10.5); Carbon Dioxide 23 mmol/L (22-29); Chloride 104 mmol/L (98-107); Globulin 3.2 g/dL (1.3-4.6); Glucose 90 mg/dL (65-115); Osmolality Calculated 286 mOsm/kg (285-295); Potassium 4.4 mmol/L (3.5-5.1); Sodium 139 mmol/L (136-145); Total Bilirubin 0.4 mg/dL (0.15-1.2)
[2022-10-01 15:44] VITALS: RESP 18; O2SAT 100
[2022-10-01] MEDS: ondansetron 2 mg/ML SDV 2 mL 4 MG IVP (15:44)
[2022-10-01] MEDS: morphine 4 mg/mL SDV 1 mL IVP (15:44)
[2022-10-01 15:45] LABS: Glucose Urine UA Norm (Normal); Ketones Urine 1+ (Negative); Protein Urine 3+ (Negative); Urine Appearance Cloudy (CLEAR); Urine Color Red (Yellow); pH Urine 7 (5-7)
[2022-10-01 15:46] LABS: Bilirubin Urine 1+ (Negative); Blood Urine 3+ (Negative); Leukocyte Esterase Urine Negative (Negative); Nitrate Urine Negative (Negative); Urobilinogen Urine 4 mg/dL (Negative)
[2022-10-01 15:48] LABS: Add Urine Microscopic? YES
[2022-10-01] MEDS: lidocaine 2% Urojet 20 mL TOPICAL (15:53)
[2022-10-01 15:59] LABS: RBC Urine TOO NUMEROUS TO CNT /hpf (0-2)
[2022-10-01 16:00] VITALS: BP 130/78; PULSE 80; RESP 16; O2SAT 98
[2022-10-01 16:01] LABS: Mucus Urine 1+ /hpf; Squamous Epithelial Cell Urine 0-4 /hpf (0-5)
[2022-10-01 16:02] LABS: Add Urine Culture? No; Bacteria Urine 1+ /hpf
[2022-10-01 18:33] VITALS: BP 130/78; PULSE 80; RESP 16; O2SAT 98
--- NOTE | 2022-10-02 09:26 | PC.SOCIAL ---
Addendum entered by Jessica Stephenson 10/16/22 11:34: marketing and promotions manager called [facility] to confirm that patients information had been received. marketing and promotions manager told that patients information had been received, it will be reviewed, and clinic will call patient with appointment information. Original Note: Urology Referral Spoke with patient in regards to urology referral. She chose [facility]. Referral faxed at this time.
== END 2022-10-01 18:00 | disposition home or self-care (01) ==
PROVIDERS: Emergency Provider Emergency Medicine; PCP Electrodiagnostic Medicine
DX: R31.9 Hematuria, unspecified (principal); Z87.891 Personal history of nicotine dependence; Z79.899 Other long term (current) drug therapy
CPT/HCPCS: 80053; 81001; 85025; 85610; 96374; 99284; J2270; J2405

== ENCOUNTER 2022-10-09 18:34 | Emergency (ER) | payer MEDICARE, SELFPAY ==
[2022-10-09 18:50] VITALS: BP 114/75; PULSE 106; RESP 17; TEMP 36.3; O2SAT 97; BMI 27.8
[2022-10-09 19:25] VITALS: BP 99/68; PULSE 108; RESP 16; O2SAT 98
--- NOTE | 2022-10-09 19:26 | ED_ITS ---
Documented by User: ANA LUISA Arellano 10/09/22 22:18 HPI - Female Genitourinary General: Chief complaint: Urogenital-Female Stated complaint: uti x 2 days Time Seen by Provider: 10/09/22 19:26 History of Present Illness: Patient has been having blood in her urine since 25 September. Patient was first placed on some antibiotics was seen in the ER due to constipation secondary to antibiotic and was done with CBI. Patient then was seen 2 days after that and had repeat CBI. Patient was to follow-up with urologist but no appointment has been made at this time for patient to be seen for the persistent bleeding. Patient comes back today due to increase in the bleeding and feeling weak and lightheaded. Patient appears in no pain. Patient appears nontoxic. Patient reports no fever. Review of Systems Const: Denies: fever(s) Card: Denies: chest pain Resp: Denies: dyspnea GI: Denies: vomiting : Reports: hematuria Musc: Denies: neck pain or back pain Skin/Breast: Denies: rash Neuro: Reports: dizziness PFSH ED PFSH: Medical History COPD (chronic obstructive pulmonary disease) Family History Father CAD (coronary artery disease) Social History Smoking and tobacco status: former smoker Quit status (tobacco): has quit using tobacco Year quit tobacco: 2019 - PPD x 60 Years Second hand smoke exposure: Yes Smoking risk assessment/counseling performed?: No Alcohol intake: current Alcohol intake frequency: few times a month Alcohol type: wine Substance/Drug Use: never Lives independently: Yes Household members: spouse Marital status: Life Partner Current occupational status: retired Do you think of yourself as: Straight/Heterosexual Current gender identity: Female Physical Exam Const: COMMON NORMALS: alert HENMT: COMMON NORMALS: normocephalic HEAD & SCALP: normocephalic Neck/C-Spine: COMMON NORMALS: full ROM Resp: COMMON NORMALS: normal respiratory effort and clear to auscultation bilaterally AUSCULTATION: clear to auscultation bilaterally Cardio: COMMON NORMALS: regular rhythm RATE: tachycardic RHYTHM: regular rhythm Extremity: COMMON NORMALS: full ROM Neuro: SENSORIUM/ORIENTATION: Yes alert Skin: COMMON NORMALS: turgor normal GENERAL SKIN EXAM: turgor normal Course Vital Signs: Vital signs: Vital Signs Temperature 97.4 F L 10/09/22 18:50 Pulse Rate 88 10/09/22 22:30 Respiratory Rate 16 10/09/22 20:58 Blood Pressure 107/68 10/09/22 22:30 Pulse Oximetry 97 10/09/22 22:30 Oxygen Delivery Me thod Room Air 10/09/22 22:30 MDM - Female Medical Decision Making 82-year-old female comes in today with persistent bleeding and blood in the urine along with lightheadedness and dizziness. Patient appears in no pain. Respirations are even. Lungs are clear to auscultation. Heart rate slightly tachycardic in the low 100s. Abdomen soft nontender. Review of the record noted a CT scan done on 27 September showed a large clot versus mass in the bladder. Patient had CBI done at that time to clear the urine and remove the clot. Patient had a repeat episode of bleeding 2 days later which was treated again with CBI. Patient was awaiting a follow-up appointment with urology for cystoscopy. Patient reports over the last 3 days has had increased blood in her urine and large amounts of bleeding with clot passing. Patient started feeling lightheaded today which prompted her to call EMS and be brought in by ambulance. Patient reports no chest pain. Patient skin is slightly pale. Vital signs are normal except for some mild tachycardia. Differential diagnosis includes anemia, hematuria, bladder cancer, cystitis. Hemoglobin was 8.0 which is a decline from 11.62 weeks ago. Urine had too numerous to count red blood cells with minimal white blood cells. CMP was unremarkable. Due to the patient's symptomatic anemia and the bleeding continued from the bladder I reviewed this with Dr. Meier who agreed with plan to contact. Discussed with the patient who agreed to plan. Contacted [facility] in [place] and talked with Dr. Larsen urologist head control clerk. He excepted the patient for further evaluation and treatment. Patient will be transferred by ambulance for further care. Lab Data 10/09/22 19:47 10/09/22 19:47 Laboratory Results WBC 7.3 10^3/uL (4.0-10.0) 10/09/22 19:47 RBC 2.81 10^6/uL (4.1-5.3) L 10/09/22 19:47 Hgb 8.0 g/dL (11.5-15.3) L 10/09/22 19:47 Hct 26.1 % (37.0-47.0) L 10/09/22 19:47 MCV 92.9 fl (81-99) 10/09/22 19:47 MCH 28.5 pg (28.0-34.0) 10/09/22 19:47 MCHC 30.7 g/dL (30.0-36.0) 10/09/22 19:47 RDW 16.1 % (12.1-15.1) H 10/09/22 19:47 Plt Count 267 10^3/cmm (130-400) 10/09/22 19:47 MPV 9.6 fL (7.4-10.4) 10/09/22 19:47 Neut % (Auto) 58.2 % 10/09/22 19:47 Lymph % (Auto) 31.7 % 10/09/22 19:47 [place] % (Auto) 8.9 % 10/09/22 19:47 Eos % (Auto) 0.4 % 10/09/22 19:47 Baso % (Auto) 0.5 % 10/09/22 19:47 Neut # (Auto) 4.27 10^3/uL (1.8-7.7) 10/09/22 19:47 Lymph # (Auto) 2.3 10^3/uL (0.8-4.8) 10/09/22 19:47 [place] # (Auto) 0.7 10^3/uL (0.2-0.9) 10/09/22 19:47 Eos # (Auto) 0.0 10^3/uL (0.0-0.8) 10/09/22 19:47 Baso # (Auto) 0.0 10^3/uL (0.0-0.1) 10/09/22 19:47 Nucleated RBC % (auto) 0 % 10/09/22 19:47 Nucleated RBCs # 0.0 /100WBC 10/09/22 19:47 Sodium 142 mmol/L (136-145) 10/09/22 19:47 Potassium 3.8 mmol/L (3.5-5.1) 10/09/22 19:47 Chloride 109 mmol/L (98-107) H 10/09/22 19:47 Carbon Dioxide 22 mmol/L (22-29) 10/09/22 19:47 Anion Gap 14.8 (5-19) 10/09/22 19:47 BUN 23 mg/dL (8-23) 10/09/22 19:47 Creatinine 0.7 mg/dL (0.5-0.9) 10/09/22 19:47 GFR Calculation Not Reportable 10/09/22 19:47 Glucose 124 mg/dL (65-115) H 10/09/22 19:47 Calculated Osmolality 299 mOsm/kg (285-295) H 10/09/22 19:47 Calcium 8.1 mg/dL (8.5-10.5) L 10/09/22 19:47 Total Bilirubin 0.5 mg/dL (0.15-1.2) 10/09/22 19:47 AST 22 U/L (0-32) 10/09/22 19:47 ALT 11 U/L (0-33) 10/09/22 19:47 Alkaline Phosphatase 73 U/L (35-105) 10/09/22 19:47 Total Protein 6.3 g/dL (6.6-8.7) L 10/09/22 19:47 Albumin 3.6 g/dL (3.5-5.2) 10/09/22 19:47 Globulin 2.7 g/dL (1.3-4.6) 10/09/22 19:47 Urine Color Red (Yellow) 10/09/22 20:14 Urine Appearance Turbid (CLEAR) A 10/09/22 20:14 Urine pH 6.5 (5-7) 10/09/22 20:14 Ur Specific [place] 1.015 (1.005-1.030) 10/09/22 20:14 Urine Protein 3+ (Negative) H 10/09/22 20:14 Urine Glucose (UA) Norm (Normal) 10/09/22 20:14 Urine Ketones 1+ (Negative) H 10/09/22 20:14 Urine Blood 3+ (Negative) H 10/09/22 20:14 Urine Nitrate Negative (Negative) 10/09/22 20:14 Urine Bilirubin Neg (Negative) 10/09/22 20:14 Urine Urobilinogen Norm mg/dL (Negative) 10/09/22 20:14 Ur Leukocyte Esterase Trace (Negative) H 10/09/22 20:14 Urine RBC Too numerous to cnt /hpf (0-2) H 10/09/22 20:14 Urine WBC 5-10 /hpf (0-5) H 10/09/22 20:14 Ur Squamous Epith Cells 0-4 /hpf (0-5) H 10/09/22 20:14 Amorphous Sediment Not Reportable 10/09/22 20:14 Urine Bacteria Trace /hpf (NONE) 10/09/22 20:14 Blood Type O Positive 10/09/22 20:50 Rho(D) Type Positive 10/09/22 20:50 Antibody Screen Negative 10/09/22 20:50 Discharge Plan Discharge Patient Disposition: Xfer Short-Term Hosp Clinical Impression: Symptomatic anemia Hematuria Qualifiers: Hematuria type: gross Qualified Code(s): R31.0 - Gross hematuria Condition: Stable Referrals: Lloyd Pillai DO [Primary Care Provider] - Coding Level of Care Code ED Banquet Prep Cook for Chg Fwd Documented by User: Regino Meier DO 10/10/22 01:43 HPI - Female Genitourinary General: Chief complaint: Urogenital-Female Stated complaint: uti x 2 days Time Seen by Provider: 10/09/22 19:26 PFSH ED PFSH: Medical History COPD (chronic obstructive pulmonary disease) Family History Father CAD (coronary artery disease) Social History Smoking and tobacco status: former smoker Quit status (tobacco): has quit using tobacco Year quit tobacco: 2019 PPD x 60 Years Second hand smoke exposure: Yes Smoking risk assessment/counseling performed?: No Alcohol intake: current Alcohol intake frequency: few times a month Alcohol type: wine Substance/Drug Use: never Lives independently: Yes Household members: spouse Marital status: Life Partner Current occupational status: retired Do you think of yourself as: Straight/Heterosexual Current gender identity: Female Course Vital Signs: Vital signs: Vital Signs Temperature 97.4 F L 10/09/22 18:50 Pulse Rate 88 10/09/22 22:30 Respiratory Rate 16 10/09/22 20:58 Blood Pressure 107/68 10/09/22 22:30 Pulse Oximetry 97 10/09/22 22:30 Oxygen Delivery Me thod Room Air 10/09/22 22:30 MDM - Female Medical Decision Making 82-year-old female comes in today with persistent bleeding and blood in the urine along with lightheadedness and dizziness. Patient appears in no pain. Respirations are even. Lungs are clear to auscultation. Heart rate slightly tachycardic in the low 100s. Abdomen soft nontender. Review of the record noted a CT scan done on 27 September showed a large clot versus mass in the bladder. Patient had CBI done at that time to clear the urine and remove the clot. Patient had a repeat episode of bleeding 2 days later which was treated again with CBI. Patient was awaiting a follow-up appointment with urology for cystoscopy. Patient reports over the last 3 days has had increased blood in her urine and large amounts of bleeding with clot passing. Patient started feeling lightheaded today which prompted her to call EMS and be brought in by ambulance. Patient reports no chest pain. Patient skin is slightly pale. Vital signs are normal except for some mild tachycardia. Differential diagnosis includes anemia, hematuria, bladder cancer, cystitis. Hemoglobin was 8.0 which is a decline from 11.62 weeks ago. Urine had too numerous to count red blood cells with minimal white blood cells. CMP was unremarkable. Due to the patient's symptomatic anemia and the bleeding continued from the bladder I reviewed this with Dr. Meier who agreed with plan to contact. Discussed with the patient who agreed to plan. Contacted [facility] in [place] and talked with Dr. Larsen urologist head control clerk. He excepted the patient for further evaluation and treatment. Patient will be transferred by ambulance for further care. This patient was originally seen by ANA LUISA Britton.? I agree with his history, evaluation, and treatment. Lab Data 10/09/22 19:47 10/09/22 19:47 Laboratory Results WBC 7.3 10^3/uL (4.0-10.0) 10/09/22 19:47 RBC 2.81 10^6/uL (4.1-5.3) L 10/09/22 19:47 Hgb 8.0 g/dL (11.5-15.3) L 10/09/22 19:47 Hct 26.1 % (37.0-47.0) L 10/09/22 19:47 MCV 92.9 fl (81-99) 10/09/22 19:47 MCH 28.5 pg (28.0-34.0) 10/09/22 19:47 MCHC 30.7 g/dL (30.0-36.0) 10/09/22 19:47 RDW 16.1 % (12.1-15.1) H 10/09/22 19:47 Plt Count 267 10^3/cmm (130-400) 10/09/22 19:47 MPV 9.6 fL (7.4-10.4) 10/09/22 19:47 Neut % (Auto) 58.2 % 10/09/22 19:47 Lymph % (Auto) 31.7 % 10/09/22 19:47 [place] % (Auto) 8.9 % 10/09/22 19:47 Eos % (Auto) 0.4 % 10/09/22 19:47 Baso % (Auto) 0.5 % 10/09/22 19:47 Neut # (Auto) 4.27 10^3/uL (1.8-7.7) 10/09/22 19:47 Lymph # (Auto) 2.3 10^3/uL (0.8-4.8) 10/09/22 19:47 [place] # (Auto) 0.7 10^3/uL (0.2-0.9) 10/09/22 19:47 Eos # (Auto) 0.0 10^3/uL (0.0-0.8) 10/09/22 19:47 Baso # (Auto) 0.0 10^3/uL (0.0-0.1) 10/09/22 19:47 Nucleated RBC % (auto) 0 % 10/09/22 19:47 Nucleated RBCs # 0.0 /100WBC 10/09/22 19:47 Sodium 142 mmol/L (136-145) 10/09/22 19:47 Potassium 3.8 mmol/L (3.5-5.1) 10/09/22 19:47 Chloride 109 mmol/L (98-107) H 10/09/22 19:47 Carbon Dioxide 22 mmol/L (22-29) 10/09/22 19:47 Anion Gap 14.8 (5-19) 10/09/22 19:47 BUN 23 mg/dL (8-23) 10/09/22 19:47 Creatinine 0.7 mg/dL (0.5-0.9) 10/09/22 19:47 GFR Calculation Not Reportable 10/09/22 19:47 Glucose 124 mg/dL (65-115) H 10/09/22 19:47 Calculated Osmolality 299 mOsm/kg (285-295) H 10/09/22 19:47 Calcium 8.1 mg/dL (8.5-10.5) L 10/09/22 19:47 Total Bilirubin 0.5 mg/dL (0.15-1.2) 10/09/22 19:47 AST 22 U/L (0-32) 10/09/22 19:47 ALT 11 U/L (0-33) 10/09/22 19:47 Alkaline Phosphatase 73 U/L (35-105) 10/09/22 19:47 Total Protein 6.3 g/dL (6.6-8.7) L 10/09/22 19:47 Albumin 3.6 g/dL (3.5-5.2) 10/09/22 19:47 Globulin 2.7 g/dL (1.3-4.6) 10/09/22 19:47 Urine Color Red (Yellow) 10/09/22 20:14 Urine Appearance Turbid (CLEAR) A 10/09/22 20:14 Urine pH 6.5 (5-7) 10/09/22 20:14 Ur Specific [place] 1.015 (1.005-1.030) 10/09/22 20:14 Urine Protein 3+ (Negative) H 10/09/22 20:14 Urine Glucose (UA) Norm (Normal) 10/09/22 20:14 Urine Ketones 1+ (Negative) H 10/09/22 20:14 Urine Blood 3+ (Negative) H 10/09/22 20:14 Urine Nitrate Negative (Negative) 10/09/22 20:14 Urine Bilirubin Neg (Negative) 10/09/22 20:14 Urine Urobilinogen Norm mg/dL (Negative) 10/09/22 20:14 Ur Leukocyte Esterase Trace (Negative) H 10/09/22 20:14 Urine RBC Too numerous to cnt /hpf (0-2) H 10/09/22 20:14 Urine WBC 5-10 /hpf (0-5) H 10/09/22 20:14 Ur Squamous Epith Cells 0-4 /hpf (0-5) H 10/09/22 20:14 Amorphous Sediment Not Reportable 10/09/22 20:14 Urine Bacteria Trace /hpf (NONE) 10/09/22 20:14 Blood Type O Positive 10/09/22 20:50 Rho(D) Type Positive 10/09/22 20:50 Antibody Screen Negative 10/09/22 20:50 Discharge Plan Discharge Patient Disposition: Xfer Short-Term Hosp Clinical Impression: Symptomatic anemia Hematuria Qualifiers: Hematuria type: gross Qualified Code(s): R31.0 - Gross hematuria Condition: Stable Referrals: Lloyd Pillai DO [Primary Care Provider] - Coding Level of Care Code ED Banquet Prep Cook for Edna Carpenter
[2022-10-09 19:57] LABS: Basophils % 0.5 %; Eosinophils % 0.4 %; Hematocrit 26.1 % (37.0-47.0); Lymphocytes # 2.3 10^3/uL (0.8-4.8); Lymphocytes % 31.7 %; Mean Corpuscular HGB Conc 30.7 g/dL (30.0-36.0); Mean Corpuscular Hemoglobin 28.5 pg (28.0-34.0); Mean Corpuscular Volume 92.9 fl (81-99); Mean Platelet Volume 9.6 fL (7.4-10.4); Monocytes # 0.7 10^3/uL (0.2-0.9); Monocytes % 8.9 %; Neutrophils # 4.27 10^3/uL (1.8-7.7); Neutrophils % 58.2 %; Nucleated Red Blood Cells % 0 %; Platelet Count 267 10^3/cmm (130-400); Red Blood Count 2.81 10^6/uL (4.1-5.3); Red Cell Distribution Width 16.1 % (12.1-15.1); White Blood Count 7.3 10^3/uL (4.0-10.0)
[2022-10-09 20:11] LABS: Alanine Aminotransferase 11 U/L (0-33); Albumin Level 3.6 g/dL (3.5-5.2); Alkaline Phosphatase 73 U/L (35-105); Anion Gap 14.8 (5-19); Aspartate Amino Transferase 22 U/L (0-32); Blood Urea Nitrogen 23 mg/dL (8-23); Calcium 8.1 mg/dL (8.5-10.5); Carbon Dioxide 22 mmol/L (22-29); Chloride 109 mmol/L (98-107); Globulin 2.7 g/dL (1.3-4.6); Glucose 124 mg/dL (65-115); Osmolality Calculated 299 mOsm/kg (285-295); Potassium 3.8 mmol/L (3.5-5.1); Sodium 142 mmol/L (136-145); Total Bilirubin 0.5 mg/dL (0.15-1.2); Total Protein 6.3 g/dL (6.6-8.7)
[2022-10-09 20:50] LABS: Add Urine Microscopic? YES; Bilirubin Urine Neg (Negative); Blood Urine 3+ (Negative); Glucose Urine UA Norm (Normal); Ketones Urine 1+ (Negative); Leukocyte Esterase Urine Trace (Negative); Nitrate Urine Negative (Negative); Protein Urine 3+ (Negative); Specific Gravity, Urine 1.015 (1.005-1.030); Urine Appearance Turbid (CLEAR); Urine Color Red (Yellow); Urobilinogen Urine Norm (Negative); pH Urine 6.5 (5-7)
[2022-10-09 20:51] LABS: Bacteria Urine TRACE /hpf; RBC Urine TOO NUMEROUS TO CNT /hpf (0-2); Squamous Epithelial Cell Urine 0-4 /hpf (0-5)
[2022-10-09 20:52] LABS: Add Urine Culture? Yes
[2022-10-09 20:58] VITALS: BP 123/67; PULSE 99; RESP 16; O2SAT 97
[2022-10-09 21:45] VITALS: BP 123/67; PULSE 95; O2SAT 94
[2022-10-09 22:30] VITALS: BP 107/68; PULSE 88; O2SAT 97
== END 2022-10-10 00:22 | disposition short-term general hospital (02) ==
PROVIDERS: Emergency Provider Nurse Practitioner Family; PCP Electrodiagnostic Medicine
DX: R31.0 Gross hematuria (principal); D64.9 Anemia, unspecified; J44.9 Chronic obstructive pulmonary disease, unspecified; Z87.891 Personal history of nicotine dependence
CPT/HCPCS: 36415; 80053; 81001; 85025; 86850; 86900; 87077; 87086; 87186; 99283